=== PATIENT | male | born 2000 | race Caucasian/White ===

== ENCOUNTER 2022-06-03 13:57 | Day surgery (SDC) | payer MEDICAID ==
[2022-06-03] MEDS ORDERED: LIDOCAINE HCL 1% 50 MG/5 ML VL PF IJ ONE (13:58)
[2022-06-03] MEDS ORDERED: BUPIVACAINE 0.5% VIAL IJ ONE (13:58)
[2022-06-03] MEDS ORDERED: Depo-Medrol 40 MG/ML IM ONE (13:58)
--- NOTE | 2022-06-03 19:53 | XRAY ---
Indication: Left shoulder subacromial bursa injection. Intraoperative fluoroscopy provided for 21 seconds. Single digital spot image submitted for interpretation demonstrates needle tip projecting inferior to the left acromion. Small amount of contrast injected for needle tip placement. Correlate with intraoperative findings/report.
--- NOTE | 2022-06-04 09:05 | XRAY ---
21 seconds fluoroscopy time in surgery for injection of the subacromial joint space of the left shoulder.
== END 2022-06-03 17:25 | disposition home or self-care (01) ==
LOC: SDC-PAIN 13:57
PROVIDERS: ATTEND Psychiatry & Neurology Pain Medicine
DX: M75.52 Bursitis of left shoulder (principal); Z79.899 Other long term (current) drug therapy
CPT/HCPCS: 20610; 73030; 77002; J1030; J2001; Q9966